=== PATIENT | male | born 1970 | race Caucasian/White ===

== ENCOUNTER 2022-11-04 14:06 | Emergency (ER) | payer OTHER, SELFPAY ==
[2022-11-04] VITALS (15 sets, daily range): BP systolic 112–135; BP diastolic 59–74; PULSE 72; RESP 18; TEMP 36.7; O2SAT 94–100
--- NOTE | ~2022-11-04 | XR_ITS ---
EXAMINATION: XR foot RT min 3V DATE: 11/04/2022 14:55 INDICATION: Right foot pain. TECHNIQUE: 4 views of right foot were obtained. COMPARISON: None. FINDINGS: Bone alignment is normal. No fracture. There is severe osteoarthritis of first metatarsopha langeal joint and first interphalangeal joint. There is mild osteoarthritis of some of the midfoot len ints. There are enthesophytes at the posterior and plantar aspects of calcaneal tuberosity. There is severe soft tissue swelling medial to first metatarsophalangeal joint. IMPRESSION: 1. Severe soft tissue swelling medial to first metatarsophalangeal joint suspicious for gout. 2. Polyarticular osteoarthritis. Reviewed, dictated and finalized at location B. IMPRESSION: 1. Severe soft tissue swelling medial to first metatarsophalangeal joint suspic ious for gout. 2. Polyarticular osteoarthritis.
[2022-11-04] MEDS: HYDROcodone/acetaminophen (*CRX) 5-325 MG TABLET 1 TAB PO (14:57)
[2022-11-04] MEDS: COLCHICINE 0.6 MG TABLET 1.2 MG PO (14:58)
[2022-11-04] MEDS: COLCHICINE 0.6 MG TABLET PO (15:57)
--- NOTE | 2022-11-04 17:23 | ED.LOWEXIN ---
HPI - Extremity Injury (Lower) General Chief Complaint: Extremity Injury, Lower Stated Complaint: GOUT PAIN Time Seen by Provider: 11/04/22 14:10 History of Present Illness HPI Narrative: Patient is a 52-year-old male who presents ER with right MTP pain. Worsening over the last 2 days. Significantly swollen. Has history of gout. Reports he typically flares in the summer. No fevers or chills or sweats. There is also some discomfort to the left foot and the lateral 3 toes. Related Data Allergies Allergy/AdvReac Type Severity Reaction Status Date / Time No Known Allergies Allergy Verified 11/04/22 14:52 Review of Systems Constitutional: Constitutional: Denies chills and Denies fever(s) Musculoskeletal: Musculoskeletal: Reports arthralgias, Reports joint swelling and Denies muscle cramps Integumentary/Breasts: Skin/Breast: Denies pruritus and Denies rash Neurologic: Denies focal weakness and Denies numbness PMFSH Past Medical History Medical History (Updated 11/04/22 @ 19:13 by Edgar Hammonds MD) Gout Surgical History Surgical History (Updated 11/04/22 @ 19:13 by Edgar Hammonds MD) No pertinent past surgical history Exam Narrative: GENERAL: Well-appearing, well-nourished, and in no acute distress. HEAD: Normocephalic, atraumatic. ENT: Mucous membranes moist. CHEST: Clear to auscultation. No respiratory distress. HEART: Regular rate and rhythm. Normal peripheral pulses EXTREMITIES: Normal range of motion. No edema. Right foot with significant swelling to the medial aspect of the first MTP with warmth redness and tenderness. Additional warmth and redness to the lateral 3 toes of the left foot without significant swelling. SKIN: Warm, dry, no rash. NEURO: Alert and oriented x3. PSYCH: Normal mood and affect. Course Course Emergency Course: Exam consistent with gout. Symptoms improved with colchicine and Kermit. Discharge home with supportive care. Patient able to ambulate in the ER and has crutches at home. Vital Signs Vital signs: Vital Signs Temperature 98.0 F 11/04/22 14:09 Pulse Rate 72 11/04/22 14:09 Respiratory Rate 18 11/04/22 14:09 Blood Pressure 135/69 11/04/22 14:09 Pulse Oximetry 100 11/04/22 14:09 Oxygen Delivery Room Air 11/04/22 14:09 Temperature 98.0 F 11/04/22 14:09 Pulse Rate 72 11/04/22 14:09 Respiratory Rate 18 11/04/22 14:09 Blood Pressure 112/59 L 11/04/22 16:47 Pulse Oximetry 96 11/04/22 17:15 Oxygen Delivery Room Air 11/04/22 14:09 MDM - Extremity Injury (Lower) Imaging Data Radiologist's impression: ITS Impressions Foot X-Ray 11/04/22 14:57 IMPRESSION: 1. Severe soft tissue swelling medial to first metatarsophalangeal joint suspicious for gout. 2. Polyarticular osteoarthritis. Discharge Plan Discharge Clinical Impression: Gout flare Patient Disposition: Home, Self-Care Condition: Stable Instructions: Gout (ED) Additional Instructions: Return the ER if you have increased pain, you have fever over 100.4 ?F, you have additional concerns. Use your crutches at home and bear weight as tolerated. Prescriptions: New hydrocodone-acetaminophen 5-325 mg tablet 1 tablet PO Q6H PRN (Reason: pain) Qty: 14 0RF prednisone 50 mg tablet 50 mg PO DAILY Qty: 7 0RF Follow-up/Referrals: PHYSICIAN,CHIP MUCKER [Primary Care Provider] - Chelsie Brandon DO [Physician] - 1 Week
== END 2022-11-04 17:32 | disposition home or self-care (01) ==
PROVIDERS: Emergency Provider Emergency Medicine
DX: M10.9 Gout, unspecified (principal)
CPT/HCPCS: 73630; 99283; A9270

== ENCOUNTER 2023-09-12 16:57 | Emergency (ER) | payer OTHER, SELFPAY ==
--- NOTE | ~2023-09-12 | XR_ITS ---
Right Knee Technique: AP, lateral, and sunrise views were obtained. Clinical History: Pain Findings: No fracture or dislocation is seen. Osseous alignment is anatomic. There is minimal degener ative spurring at the intercondylar notch. Small joint effusion is seen. Impression: Minimal degenerative spurring. Small joint effusion, nonspecific. Reviewed, dictated and finalized at [facility]. Impression: Minimal degenerative spurring. Small joint effusion, nonspecific.
[2023-09-12 17:03] VITALS: BP 133/113; PULSE 62; RESP 20; TEMP 36.4; O2SAT 98
[2023-09-12] MEDS: HYDROcodone/acetaminophen (*CRX) 5-325 MG TABLET 1 TAB PO (17:23)
--- NOTE | 2023-09-12 18:44 | ED.GENADULT ---
HPI - General Adult General Chief complaint: Extremity Problem,Nontraumatic <Baron Martinez MD - Last Filed: 09/12/23 21:14> Stated complaint: R knee pain <Baron Martinez MD - Last Filed: 09/12/23 21:14> Time Seen by Provider: 09/12/23 17:04 <Baron Martinez MD - Last Filed: 09/12/23 21:14> History of Present Illness HPI narrative: This is a 53-year-old male presenting ED with a chief complaint of knee pain. Patient has a history of arthritis and gout. Says he has become swollen and painful. He denies fevers or redness. He has not seen a primary care physician in many years. He has stopped taking his allopurinol to said it gave him headaches. He has been taking intermittent Motrin for pain. <Baron Martinez MD - Last Filed: 09/12/23 21:14> Related Data Allergies/adverse reactions: Allergies Allergy/AdvReac Type Severity Reaction Status Date / Time No Known Allergies Allergy Verified 11/04/22 14:52 <Baron Martinez MD - Last Filed: 09/12/23 21:14> [facility] Past Medical History Medical History: Medical History Gout <Baron Martinez MD - Last Filed: 09/12/23 21:14> Surgical History Surgical History: Surgical History No pertinent past surgical history <Baron Martinez MD - Last Filed: 09/12/23 21:14> Exam Narrative: APPEARANCE: No apparent distress. Head: atraumatic. EYES: EOMI, NOSE: Atraumatic NECK: Trachea midline RESPIRATORY: No increased rate of breathing CARDIOVASCULAR: RRR, ABDOMINAL: Non-distended MUSCULOSKELETAl: Focal which is exam of the right lower extremity revealed a moderate-sized knee effusion. No pain with passive movement. Moderate warmth but no erythema. NEURO: Alert. Moving 4/4 extremities SKIN:: Warm, dry. Normal color PSYCHIATRIC: Normal affect <Baron Martinez MD - Last Filed: 09/12/23 21:14> Course Course Emergency Course: signed out to me by ER physician. Patient presents here with knee pain, he has a history of arthritis, I was to follow up with on aspirate; this does appear consistent with inflammatory arthritis. he has no fevers, no overlying erythema, and no painful range of motion for me to suspect septic arthritis. He is given strict return precautions if he develops any signs of infection and have given him follow-up information to an orthopedic surgeon. At time of discharge patient very well-appearing in no distress and reports pain in symptoms improved after joint aspiration. <Brie Castillo MD - Last Filed: 09/12/23 21:13> Vital Signs Vital signs: Vital Signs Temperature 97.6 F 09/12/23 17:03 Pulse Rate 62 09/12/23 17:03 Respiratory Rate 20 09/12/23 17:03 Blood Pressure 133/113 H 09/12/23 17:03 Pulse Oximetry 98 09/12/23 17:03 Oxygen Delivery Room Air 09/12/23 17:03 Temperature 97.6 F 09/12/23 17:03 Pulse Rate 61 09/12/23 18:50 Respiratory Rate 20 09/12/23 18:50 Blood Pressure 122/86 09/12/23 18:50 Pulse Oximetry 99 09/12/23 18:50 Oxygen Delivery Room Air 09/12/23 17:03 <Baron Martinez MD - Last Filed: 09/12/23 21:14> Vital Signs Temperature 97.6 F 09/12/23 17:03 Pulse Rate 62 09/12/23 17:03 Respiratory Rate 20 09/12/23 17:03 Blood Pressure 133/113 H 09/12/23 17:03 Pulse Oximetry 98 09/12/23 17:03 Oxygen Delivery Room Air 09/12/23 17:03 Temperature 97.6 F 09/12/23 17:03 Pulse Rate 61 09/12/23 18:50 Respiratory Rate 20 09/12/23 18:50 Blood Pressure 122/86 09/12/23 18:50 Pulse Oximetry 99 09/12/23 18:50 Oxygen Delivery Room Air 09/12/23 17:03 <Brie Castillo MD - Last Filed: 09/12/23 21:13> Medical Decision Making MDM Narrative Medical decision making narrative: -Course: 53-year-old male presents with right knee pain and effusion. Knee was tapped for diagnostic and ther
[2023-09-12 18:50] VITALS: BP 122/86; PULSE 61; RESP 20; O2SAT 99
[2023-09-12] MEDS: ACETAMINOPHEN 500 MG TABLET PO (20:21)
[2023-09-12] MEDS: KETOROLAC 15 MG/ML VIAL (*BKC) IV PUSH (20:22)
[2023-09-12 20:28] LABS: Color Synovial Fluid Yellow (Colorless); Source Synovial Fluid Synovial fluid
[2023-09-12 20:29] LABS: Appearance Synovial Fluid Cloudy (Clear)
[2023-09-12 20:38] LABS: Nucleated Cell Synovial Fluid 37790 /uL (0-200)
[2023-09-12 20:40] LABS: RBC Synovial Fluid 10000 /uL (0-0)
[2023-09-12 20:49] LABS: Lymphocytes Synovial Fluid 5 %; Monocytes Synovial Fluid 5 %; Neutrophils Synovial Fluid 90 % (0-25)
[2023-09-16 18:29] LABS: Glucose Synovial Fluid 28 mg/dL
== END 2023-09-12 21:29 | disposition home or self-care (01) ==
PROVIDERS: Emergency Medicine; Emergency Provider Emergency Medicine
DX: M25.561 Pain in right knee (principal); M19.90 Unspecified osteoarthritis, unspecified site
CPT/HCPCS: 73562; 82945; 84157; 87205; 89051; 89060; 96374; 99284; A9270; J1885

== ENCOUNTER 2024-08-31 22:58 | Emergency (ER) | payer OTHER, SELFPAY ==
--- NOTE | ~2024-08-31 | XR_ITS ---
Right foot Technique: AP, oblique, and lateral views were obtained. Clinical History: Gout, swelling COMPARISON: 11/04/2022 Findings: No acute fracture or dislocation is seen. Osseous alignment is anatomic. There is moderate degenerative change at the first MTP joint and interphalangeal joint of the great toe. There is marke d soft tissue swelling at the medial aspect of the first MTP joint region. No definite erosive change identified. Impression: Marked soft tissue swelling versus mass at the medial aspect of the first MTP joint. This is stable s mike 11/04/2022. Moderate degenerative change of the first MTP joint and interphalangeal joint of the great toe. No er osive change identified. Reviewed, dictated and finalized at location M. Impression: Marked soft tissue swelling versus mass at the medial aspect of the first MTP j oint. This is stable since 11/04/2022. Moderate degenerative change of the first MTP joint and interphalangeal joint o f the great toe. No erosive change identified.
[2024-08-31 23:01] VITALS: BP 133/88; PULSE 102; RESP 20; TEMP 37; O2SAT 100
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
--- OUTSIDE RECORDS SUMMARY | 2024-08-31 23:55 | XMS_ITS | Encounter Summary ---
Author Organization [facility] Address [address] [place] [address] Care Team Providers Care Sales Support Manager Name Role Phone Salvador Dee MD Primary Care Provider [phone] Jean Marie Dee MD Unavailable [phone] Jonathan Arguello DPM Unavailable [phone] Encounter Details Date Type Department Care Team (Late st Contact Info) Description 02/18/[address] [address] Nadine Wheeler, SEAN Social History Tobacco Use Types Packs/Day Years [...] making you feel afraid or unsafe? Denies 02/13/2023 Sex and Gender Information Value Date Recorded Sex Assigned at Not on file Legal Sex Male 11:50 PM TRAIN MASTER Gender Identity Not on file Sexual Orientation Not on file documented as of this encounter Plan of Treatment Not on file documented as of this encounter Visit Diagnoses Not on filedocumented in this encounter Care Teams Sales Support Manager Relationship Specialty Start Date End Date Salvador Dee MD [address] [place] [address] PCP - General 08/13/16 Jean Marie Dee MD [address] [place] [address] Referring Physician Internal Medicine 06/12/21 Jonathan Arguello, RUBEN [address] [facility] [place] [address] Consulting Physician Foot and Ankle Surg 06/12/21 documented as of this encounter
[2024-09-01 01:08] VITALS: BP 114/75; PULSE 54; RESP 18; O2SAT 98
--- NOTE | 2024-09-01 01:41 | ED_ITS ---
HPI - Extremity Problem General Chief complaint: Extremity Problem,Nontraumatic Stated complaint: toe pain, gout flare Time Seen by Provider: 08/31/24 23:44 Source: patient Mode of arrival: ambulatory Limitations: no limitations History of Present Illness HPI Narrative: Patient is a 54-year-old male who presents the ED with report of right 1st toe pain. Patient reports long history of gout. Reports he typically has an episode 1-2 times per year, typically involving his right 1st toes bilaterally. He notes he did drink more over the weekend for as well as ate seafood. He thinks this may have flared his gout. He reports having pain, swelling, redness to his right 1st MTP region since Wednesday. He is able to ambulate, but has pain with this. Denies numbness. Denies any focal injury. Denies fevers. Related Data Allergies Allergy/AdvReac Type Severity Reaction Status Date / Time No Known Allergies Allergy Verified 08/31/24 23:04 Review of Systems Review of Systems: All systems reviewed & are unremarkable except as noted in HPI. All systems reviewed & are unremarkable except as noted in HPI and below PMFSH Past Medical History Medical History Gout Surgical History Surgical History No pertinent past surgical history Exam Narrative: GENERAL: Well appearing, well-nourished, non-toxic, in no acute distress. HEAD: Normocephalic, atraumatic. RESPIRATORY: Airway patent, respirations nonlabored. CARDIOVASCULAR: Regular rate and rhythm. Pedal pulses intact and easily palpable. MUSCULOSKELETAL: Moves all extremities. No gross deformities. Moderate swelling and tophi formation to R 1st MTP and IP joint of R 1st digit. Erythema present. No streaking or lymphangitis. No significant warmth. Focal tenderness. SKIN: Warm, dry, normal color. NEURO: A&O X3. Speech clear. PSYCHIATRIC: Appropriate mood and affect. Normal interaction. Course Vital Signs Vital signs: Vital Signs Temperature 98.6 F 08/31/24 23:01 Pulse Rate 102 H 08/31/24 23:01 Respiratory Rate 20 08/31/24 23:01 Blood Pressure 133/88 08/31/24 23:01 Pulse Oximetry 100 08/31/24 23:01 Oxygen Delivery Room Air 08/31/24 23:01 Temperature 98.6 F 08/31/24 23:01 Pulse Rate 57 L 09/01/24 02:39 Respiratory Rate 18 09/01/24 02:39 Blood Pressure 132/87 09/01/24 02:39 Pulse Oximetry 98 09/01/24 02:39 Oxygen Delivery Room Air 08/31/24 23:01 MDM - Extremity (Nontraumatic) MDM Narrative Medical decision making narrative: Exam consistent with gout. X-ray of right foot interpreted by myself without acute osseous abnormality. Patient given steroids here. He is driving from the ED. Will discharge on course of steroids and [place]. Sent to pharmacy. Advised to follow-up closely with primary care doctor and Podiatry for further evaluation. Given return precautions. Patient in agreement with plan. Discharged in stable condition. Offered postop shoe and crutches. Patient declined crutches, stating he has some at home. Medical Records Attestation: I reviewed the patient's medical records. Imaging Data Attestation: I personally reviewed and interpreted this imaging study as follows: My impression: XR R foot: Soft tissue swelling medial to 1st MTP joint. No acute osseous abnormality. Discharge Plan Discharge Clinical Impression: Gout Qualifiers: Gout site: foot Gout etiology: unspecified cause Chronicity: acute Laterality: right Qualified Code(s): M10.9 - Gout, unspecified Patient Disposition: Home Condition: Stable Instructions: Antibiotic Form, Low Purine Diet (ED), Gout (ED) Additional Instructions: Take prednisone daily as prescribed. Utilize [place] as needed for more severe pain. Avoid further alcohol use at this time. Utilize crutches as needed for assistance with walking. Weight-bear as tolerated. Follow up closely with primary care doctor and/or podiatry for further evaluation. Return to the ED if you experience worsening or severe symptoms, fevers greater than 100.4F, unable to walk, injury, redness streaking up leg, or any other symptoms of concern. Patient Language: Uzbek Prescriptions: New prednisone 50 mg tablet 50 mg PO DAILY Qty: 7 0RF hydrocodone-acetaminophen 5-325 mg tablet 1 tablet PO Q6H PRN (Reason: pain) Qty: 14 0RF No Action hydrocodone-acetaminophen 5-325 mg tablet 1 tablet PO Q6H PRN (Reason: pain) Qty: 14 0RF prednisone 50 mg tablet 50 mg PO DAILY Qty: 7 0RF acetaminophen 500 mg tablet 1,000 mg PO TID PRN (Reason: pushpa) 7 Days Qty: 42 0RF ibuprofen 800 mg tablet 800 mg PO TID PRN (Reason: pain) 7 Days Qty: 21 0RF Follow-up/Referrals: Austen Guerrero Jr., DPM [Physician] - (PODIATRY) PHYSICIAN,PAI GOW DEALER [Primary Care Provider] - Marcus Bryan MD [Physician] - (PRIMARY CARE) Time of Disposition: 01:48
[2024-09-01] MEDS: methylPREDNISolone SOD SUCC 125 MG VIAL IM (01:53)
[2024-09-01] MEDS: ACETAMINOPHEN 325 MG TABLET 650 MG PO (01:54)
--- NOTE | 2024-09-01 01:58 | PC.NURSE ---
Pt verbally states he does not need the crutches due to having some at home and he will be fine without them. Pt also verbally states he does not want the post op shoes due to them never working for me.
[2024-09-01 02:39] VITALS: BP 132/87; PULSE 57; RESP 18; O2SAT 98
== END 2024-09-01 02:40 | disposition home or self-care (01) ==
PROVIDERS: Emergency Provider Physician Assistant
DX: M10.9 Gout, unspecified (principal)
CPT/HCPCS: 73630; 96372; 99283; A9270; J2919

== ENCOUNTER 2025-03-06 21:43 | Emergency (ER) | payer OTHER, SELFPAY ==
--- NOTE | ~2025-03-06 | XR_ITS ---
Examination: XR ankle LT 2V Clinical History: pain Comparison: None Technique: 2 views left ankle Findings/impression: 1. No definite fracture identified but diffuse soft tissue swelling. Consider additional views if clinical suspicion persists. 2. Ankle mortise intact. 3. Midfoot degenerative changes. Reviewed, dictated and finalized at location R. OL PHOTOGRAPH EDITOR
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
[2025-03-06 21:50] VITALS: BP 105/65; PULSE 80; RESP 18; TEMP 36.6; O2SAT 100
[2025-03-07 00:40] VITALS: BP 132/85; PULSE 71; RESP 18; TEMP 36.6; O2SAT 96
[2025-03-07 00:43] VITALS: BP 132/85; O2SAT 97
[2025-03-07 00:46] VITALS: BP 121/85; O2SAT 97
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
--- NOTE | 2025-03-07 01:07 | ED_ITS ---
HPI - Extremity Problem General Chief complaint: Extremity Problem,Nontraumatic Stated complaint: leg pain and discoloration Time Seen by Provider: 03/07/25 00:49 Source: patient Mode of arrival: ambulatory Limitations: no limitations History of Present Illness HPI Narrative: Patient is a 55-year-old male presents to the emergency department pain swelling to his left ankle. Patient notes that his left ankle is seems slightly swollen over the past 3-4 days, was having some swelling of the left lower leg preceding that seems to have gone away with persistent swelling of his left ankle, primarily over the medial aspect. Patient denies any injuries. 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 Patient denies any fevers, history of blood clots. Denies any focal weakness or numbness. Denies any chest pain or difficulty breathing. Related Data Allergies Allergy/AdvReac Type Severity Reaction Status Date / Time No Known Allergies Allergy Verified 08/31/24 23:04 Review of Systems 2 Review of Systems: A 10 system review of systems was completed on the patient and is negative except for what is stated in the HPI. Nursing and ancillary documentation was reviewed. [facility] Past Medical History Medical History Gout Surgical History Surgical History No pertinent past surgical history Exam 2 Narrative: CONST: No acute distress. Well nourished. HENMT: Head is normocephalic and atraumatic. Moist mucous membranes. No posterior oropharynx erythema. EYES: No scleral icterus. No conjunctival injection or pallor. PERRL. NECK: No meningeal signs. RESP: Able to speak in full sentences. Normal respiratory effort. CTAB. CARDIO: Regular rate. Regular rhythm. 2+ DP and radial pulses bilaterally. 2+ PT pulses bilaterally. GI: Nondistended. No tenderness to palpation. Soft. : No CVA tenderness to palpation. SKIN: No rashes or lesions noted on exposed skin. NEURO: Oriented x3. Moves all extremities. EXTREM/MSK/BACK: No pedal edema. Multiple tophi throughout the bilateral lower extremities including the bilateral 1st MTP joints, right Achilles region. Capillary refills less than 2 seconds in the distal digits of the bilateral lower extremities. No calf tenderness to palpation over swelling of the tibia fibular region bilaterally. Ears, swelling to the left medial malleolus region without overlying patient skin, no crepitus, no warmth, no erythema, no fluctuance but no tenderness to palpation. Sensation intact to light touch throughout the bilateral lower extremities. There is no joint effusion of the left ankle, no discomfort with passive range of motion of the left ankle, no ligament laxity of the left ankle. PSYCH: Normal affect. Course Vital Signs Vital signs: Vital Signs Temperature 97.8 F 03/06/25 21:50 Pulse Rate 80 03/06/25 21:50 Respiratory Rate 18 03/06/25 21:50 Blood Pressure 105/65 03/06/25 21:50 Pulse Oximetry 100 03/06/25 21:50 Oxygen Delivery Room Air 03/06/25 21:50 Temperature 98.2 F 03/07/25 02:29 Pulse Rate 82 03/07/25 02:29 Respiratory Rate 18 03/07/25 02:29 Blood Pressure 158/87 H 03/07/25 02:29 Pulse Oximetry 100 03/07/25 02:29 Oxygen Delivery Room Air 03/06/25 21:50 MDM MDM Narrative Medical decision making narrative: Patient presents with the above complaint. Initial vitals are remarkable for no significant abnormalities. Physical examination as noted above. Plan discussed: laboratory analysis, left ankle x-ray, continues cardiac my incomplete his pulse oximetry, [place], prednisone. D-dimer is elevated, will administer a dose of Lovenox. Patient counseled on potential diagnoses, the importance of following up the primary care physician, ultrasound performed in the morning, the management and treatment of DVT, bleeding risk, injury risk, sinus symptoms of a blood clot driving to his lungs, reasons to immediately return to the emergency department, the importance of following his kidney function over time, abstain from any further Motrin use, stay well hydrated, discussed of opioids and the risk of these medications as well, the importance of following up with a electronics commodity manager, sinus symptoms of infection and reasons to return to the emergency department. Patient was reassessed at the bedside. No changes in physical exam. Patient is in no acute distress. Patient is sleeping comfortably upon my arrival to the room. Notes that he feels well at this time. The patient has remained stable throughout the entire ED visit. Counseled patient regarding diagnostic results and potential diagnosis. Anticipatory guidance provided. Patient instructed to follow up with a primary care physician in the next 1 day which I provided referral, Podiatry in the next within 2 weeks, return for an ultrasound in a.m. Patient counseled on: false reassurance from an emergency department evaluation; no current evidence of a medical emergency; return immediately for any new, recurrent, worsening, concerning, or refractory symptoms. Patient prescribed [place], prednisone. Prescription sent to preferred pharmacy. Medications discussed with patient. Additional verbal and printed discharge instructions were given and discussed with the patient. Patient verbally acknowledges understanding of condition and discharge instructions. All questions were answered to the patient's satisfaction. Patient is in agreement with the plan of care. The patient is stable for discharge and was discharged without incident. Differential Diagnosis Differential Diagnosis: Gout, musculoskeletal strain, fracture, contusion, superficial thrombophlebitis, DVT, arthritis, tendinitis, nephropathy, hepatopathy, cardiomyopathy. Medical Records I have reviewed the following patient records and this information was taken into consideration when formulating the assessment and plan.: previous ER visits Lab Data MDM Lab Attestation statement: I personally reviewed the patient's lab results. Lab results narrative: CBC reveals a white blood cell count 10.5, hemoglobin of 13.1, platelet count 390. CMP reveals a creatinine 1.54. Ethyl alcohol level is less than 10. Magnesium is 1.8. D-dimer is 1.61. PT and INR and APTT are grossly within normal limits. BNP is 234. 03/07/25 01:30 03/07/25 01:30 Labs: Lab Results 03/07/25 03/07/25 Range/Units 01:30 02:25 WBC 10.5 H (4.5-10.0) K/mm3 RBC 4.14 L (4.6-6.20) M/mm3 Hgb 13.1 L (14.0-18.0) g/dL Hct 38.4 L (42.0-52.0) % MCV 92.8 (80-100) fl MCH 31.6 (26-34) pg MCHC 34.1 (32-36) g/dl RDW 13.2 (11.5-14.5) % Plt Count 390 H (150-375) k/mm3 MPV 8.8 (7.4-10.4) fl Immature Gran % (Auto) 0.3 (0-0.5) % Neut % (Auto) 60.6 (45.5-73.1) % Lymph % (Auto) 27.7 (18.3-44.2) % [place] % (Auto) 7.9 (2.6-8.5) % Eos % (Auto) 2.7 (0-4.4) % Baso % (Auto) 0.8 (0.2-1.2) % Lymph # (Auto) 2.89 (0.9-3.2) K/mm3 [place] # (Auto) 0.8 H (0.1-0.6) K/mm3 Eos # (Auto) 0.3 (0-0.3) K/mm3 Baso # (Auto) 0.1 (0.0-0.1) K/mm3 Abs Immat Gran (auto) 0.03 (0.00-0.031) K/mm3 Absolute Neuts (auto) 6.3 (1.3-6.7) K/mm3 Absolute Nucleated RBC 0.000 (0.0-0.012) K/mm3 Nucleated RBC % 0.0 (0.0-0.2) % PT 14.5 (11.1-14.7) Seconds INR 1.1 APTT 30.8 (22.3-36.8) Seconds D-Dimer 1.61 H (<0.48) ug/mL Sodium 135 L (137-145) mmol/L Potassium 3.4 (3.4-5.0) mmol/L Chloride 103 (98-107) mmol/L Carbon Dioxide 27 (22-30) mmol/L Anion Gap 5 (4-12) mmol/L BUN 12 (9-20) mg/dL Creatinine 1.54 H (0.7-1.3) mg/dL Estim Creat Clear Calc 62 ml/min Estimated GFR 47 L (59 - ) Glucose 101 (65-110) mg/dL Calcium 8.6 (8.4-10.2) mg/dL Magnesium 1.8 (1.6-2.3) mg/dL Total Bilirubin 0.5 (0.2-1.3) mg/dL AST 25 (17-59) U/L ALT 21 (6-50) U/L Alkaline Phosphatase 92 (38-126) U/L NT-Pro-B Natriuret Pep 234 H (19.9-100) pg/mL Total Protein 7.6 (6.3-8.2) g/dL Albumin 4.1 (3.5-5.1) g/dL TSH (Reflex) 2.190 (0.465-4.68) uIU/mL Urine Color Pending Urine Appearance Pending Urine pH Pending Ur Specific [place] Pending Urine Protein Pending Urine Glucose (UA) Pending Urine Ketones Pending Ur Blood (Man) Pending Urine Nitrate Pending Urine Bilirubin Pending Urine Urobilinogen Pending Leukocyte Esterase Rfl Pending Urine Opiates Screen Pending Urine Methadone Screen Pending Ur Barbiturates Screen Pending Ur Phencyclidine Scrn Pending Ur Amphetamine Screen Pending U Benzodiazepines Scrn Pending Urine Cocaine Screen Pending U Cannabinoids Screen Pending Ethyl Alcohol < 10 (<10) mg/dL Discharge Plan Discharge Clinical Impression: Left leg swelling, Elevated serum creatinine, D-dimer, elevated, Gout, Ankle pain, left Patient Disposition: Home Condition: Stable Instructions: Antibiotic Form, Chronic Kidney Disease (ED), Gout (ED), Leg Edema (ED) Additional Instructions: You have been scheduled for a outpatient ultrasound to be performed at 7:30 a.m., come back here at that time for an ultrasound to evaluate for any blood clots in your left leg. Follow-up with your primary care physician in the next 1-2 days for reassessment to further discuss your workup and management of your condition. Fever found have an elevated creatinine concerning for kidney disease, no old on file to compare to, follow-up with your doctor to monitor this. Refrain from any NSAID use. Take the pain medications as needed. Follow-up with podiatry in the next 1-2 weeks for the gout and chronic issues of your feet. You were given a blood thinner here which is a treatment for a possible blood clot and if you have any injuries please return immediately to the emergency department or develop any bleeding such as bloody bowel movements please return to the emergency department to be reassessed. Take the steroids as prescribed to completion. Return immediately to the emergency department for any new or concerning symptoms especially rapidly spreading redness, fever, sent increase in pain, difficulty breathing, chest pain, bloody bowel movements, lightheadedness, head injury, or any emergent concerns for life, limb, eyesight. Do not drive or operate heavy machinery until you know how the pain medication makes you feel. Patient Language: Citizen [place] Prescriptions: New prednisone 50 mg tablet 50 mg PO DAILY 7 Days Qty: 7 0RF hydrocodone-acetaminophen 5-325 mg tablet 1 tablet PO Q6H MDD 4 tabs PRN (Reason: pain) Qty: 12 0RF No Action hydrocodone-acetaminophen 5-325 mg tablet 1 tablet PO Q6H PRN (Reason: pain) Qty: 14 0RF prednisone 50 mg tablet 50 mg PO DAILY Qty: 7 0RF acetaminophen 500 mg tablet 1,000 mg PO TID PRN (Reason: pushpa) 7 Days Qty: 42 0RF ibuprofen 800 mg tablet 800 mg PO TID PRN (Reason: pain) 7 Days Qty: 21 0RF prednisone 50 mg tablet 50 mg PO DAILY Qty: 7 0RF hydrocodone-acetaminophen 5-325 mg tablet 1 tablet PO Q6H PRN (Reason: pain) Qty: 14 0RF Other Ambulatory Orders: US venous doppler LE (Routine) Timeframe: [id number] Facility: [facility] - Location: [facility] Imaging Ordered By: Antonio Olson Follow-up/Referrals: Austen Guerrero Jr., DPM [Physician, Podiatry] - 3 Days PHYSICIAN,ROADING ENGINEER [Primary Care Provider, Internal Medicine] Marcus Bryan MD [Physician, Family Practice] - 1 Day Time of Disposition: 02:28
[2025-03-07] MEDS: HYDROcodone/acetaminophen (*CRX) 5-325 MG TABLET 1 TAB PO (01:14)
[2025-03-07 01:17] VITALS: BP 153/90
[2025-03-07 01:38] LABS: Hematocrit 38.4 % (42.0-52.0); Hemoglobin 13.1 g/dL (14.0-18.0); Immature Granulocyte Percent A 0.3 % (0-0.5); Lymphocytes Absolute Auto 2.89 K/mm3 (0.9-3.2); Mean Corpuscular HGB Conc 34.1 g/dl (32-36); Mean Corpuscular Hemoglobin 31.6 pg (26-34); Mean Corpuscular Volume 92.8 fl (80-100); Nucleated Red Blood Cells Absolute Auto 0.000 K/mm3 (0.0-0.012); Nucleated Red Blood Cells Perc 0.0 % (0.0-0.2); Platelet Count Result 390 k/mm3 (150-375); Red Blood Count 4.14 M/mm3 (4.6-6.20); White Blood Count 10.5 K/mm3 (4.5-10.0)
[2025-03-07 01:45] LABS: Alanine Aminotransferase 21 U/L (6-50); Albumin Level 4.1 g/dL (3.5-5.1); Alkaline Phosphatase 92 U/L (38-126); Anion Gap 5 mmol/L (4-12); Aspartate Amino Transferase 25 U/L (17-59); Bilirubin,Total 0.5 mg/dL (0.2-1.3); Blood Urea Nitrogen 12 mg/dL (9-20); Calcium 8.6 mg/dL (8.4-10.2); Carbon Dioxide 27 mmol/L (22-30); Chloride 103 mmol/L (98-107); Estimated CRCL calculation 62 ml/min; Estimated Glomerular Filt Rate 47; Glucose 101 mg/dL (65-110); Magnesium 1.8 mg/dL (1.6-2.3); Potassium 3.4 mmol/L (3.4-5.0); Sodium 135 mmol/L (137-145); Total Protein 7.6 g/dL (6.3-8.2)
[2025-03-07 01:53] LABS: INR 1.1; Prothrombin Time 14.5 Seconds (11.1-14.7)
[2025-03-07 01:54] LABS: Partial Thromboplastin Time 30.8 Seconds (22.3-36.8)
[2025-03-07 01:55] LABS: NT Pro B Type Natriuretic Pept 234 pg/mL (19.9-100)
[2025-03-07 02:22] LABS: Thyroid Stimulating Hormone Reflex 2.190 uIU/mL (0.465-4.68)
[2025-03-07] MEDS: ENOXAPARIN 100 MG/ML SYRINGE SUB-Q (02:23)
[2025-03-07 02:29] VITALS: BP 158/87; PULSE 82; RESP 18; TEMP 36.8; O2SAT 100
[2025-03-07 02:35] LABS: Add Urine Microscopic? NO; Appearance Urine Clear (Clear); Glucose Urine UA Negative (Negative); Leukocyte Esterase Ur Negative LEU/UL (Negative); Nitrate Urine Negative (Negative); Specific Grav Ur 1.006 (1.001-1.035)
[2025-03-07 04:24] LABS: Cannabinoid Screen Urine Positive (Negative)
== END 2025-03-07 02:37 | disposition home or self-care (01) ==
PROVIDERS: Emergency Provider Student in an Organized Health Care Education/Training Program
DX: R22.42 Localized swelling, mass and lump, left lower limb (principal); M10.9 Gout, unspecified; M25.572 Pain in left ankle and joints of left foot; R94.4 Abnormal results of kidney function studies; R79.1 Abnormal coagulation profile
CPT/HCPCS: 36415; 73600; 80053; 80307; 81003; 82077; 83735; 83880; 84443; 85025; 85380; 85610; 85730; 96372; 99283; A9270; J1650; J7512

== ENCOUNTER 2025-03-07 08:00 | Outpatient (CLI) | payer OTHER, SELFPAY ==
--- NOTE | ~2025-03-07 | US_ITS ---
LEFT LOWER EXTREMITY VENOUS DUPLEX Clinical History: M25.572 - Pain in left ankle and joints of left foot COMPARISON: None TECHNIQUE: Grayscale, color, duplex/spectral Doppler sonography left leg FINDINGS: Left leg common femoral, femoral, popliteal, and calf veins compressible and color Doppler patent. Normal augmentation with distal compression. No internal echoes. IMPRESSION: 1. No left leg DVT. Reviewed, dictated and finalized at location [facility] IMPRESSION: 1. No left leg DVT.
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
--- OUTSIDE RECORDS SUMMARY | 2025-03-07 08:08 | XMS_ITS | Encounter Summary ---
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 Gender Identity Not on file Sexual Orientation Not on file documented as of this encounter Plan of Treatment Not on file documented as of this encounter Visit Diagnoses Not on filedocumented in this encounter Care Teams Karate Teacher Relationship Specialty Start Date End Date Salvador Dee MD [address] [place] [address] PCP - General 08/13/16 Jean Marie Dee MD [address] [place] [address] Referring Physician Internal Medicine 06/12/21 Jonathan Arguello, RUBEN [address] [facility] [place] [address] Consulting Physician Foot and Ankle Surg 06/12/21 documented as of this encounter
== END 2025-03-07 08:01 | disposition home or self-care (01) ==
PROVIDERS: Visit Provider Student in an Organized Health Care Education/Training Program
DX: M25.572 Pain in left ankle and joints of left foot (principal); M79.89 Other specified soft tissue disorders
CPT/HCPCS: 93971